=== PATIENT | female | born 1935 ===

== ENCOUNTER 2017-01-22 11:13 | Inpatient (IN) | payer MEDICARE ==
[2017-01-22 11:14] VITALS: BMI 22.4
[2017-01-22] MEDS ORDERED: Sodium Chloride 0.9% 500 ML IV ONE ×2 (11:45→11:58)
[2017-01-22] MEDS ORDERED: Sodium Chloride 0.9% 1,000 ML IV ONE (11:45)
--- NOTE | 2017-01-22 11:45 | C.PDOC ---
History Of Present Illness 81-year-old female, PMHx includes, presents to the emergency department with complaints of worsening non-bloody diarrhea x1 month, anywhere from 3-6 times a day, that are sometimes loose or watery. Patient denies sick contacts or recent travel. States she saw PMD on 01/20, who advised patient on low Potassium and diet for treatment. Patient notes increased weakness and 10lb weight loss. Denies pain, vomiting, bloating, or fever. Patient states stool is sometimes black, but she takes Pepto as needed. PMD Juanjo Serna MD. Time Seen by Provider: 01/22/17 11:29 Chief Complaint (Nursing): GI Problem History Per: Patient History/Exam Limitations: no limitations Onset/Duration Of Symptoms: Days Current Symptoms Are (Timing): Still Present Severity: Moderate Past Medical History Reviewed: Historical Data, Nursing Documentation, Vital Signs Vital Signs: Last Vital Signs Temp 98.1 F 01/22/17 11:23 Pulse 69 01/22/17 11:23 Resp 16 01/22/17 11:23 BP 102/73 01/22/17 11:23 Pulse Ox 95 01/22/17 12:48 - Medical History PMH: Anxiety, Arthritis (HIP ), Cardia Arrhythmia, HTN Surgical History: Endoscopy, Pacemaker - [facility] Procedures CORONAR ARTERIOGR-2 CATH (03/12/13) LEFT HEART CARDIAC CATH (03/12/13) LT HEART ANGIOCARDIOGRAM (03/12/13) Family History: States: No Known Family Hx - Social History Hx Tobacco Use: No Hx Alcohol Use: No Hx Substance Use: No - Immunization History Hx Tetanus Toxoid Vaccination: Yes Hx Influenza Vaccination: Yes Hx Pneumococcal Vaccination: Yes Review Of Systems Except As Marked, All Systems Reviewed And Found Negative. Constitutional: Negative for: Fever, Chills Gastrointestinal: Positive for: Diarrhea. Negative for: Nausea, Vomiting, Abdominal Pain Musculoskeletal: Negative for: Back Pain Skin: Negative for: Rash Neurological: Negative for: Weakness, Numbness Physical Exam - Physical Exam Appears: Non-toxic, No Acute Distress Skin: Warm, Dry, No Rash Head: Atraumatic, Normacephalic Eye(s): bilateral: Normal Inspection, PERRL Nose: Normal Oral Mucosa: Moist Lips: Normal Appearing Neck: Normal ROM Cardiovascular: Rhythm Regular, No Murmur Respiratory: Normal Breath Sounds, No Accessory Muscle Use Gastrointestinal/Abdominal: Soft, No Tenderness Extremity: Normal ROM Neurological/Psych: Oriented x3, Normal Speech ED Course And Treatment - Laboratory Results Result Diagrams: 01/22/17 11:57 01/22/17 11:57 ECG: Interpreted By Me ECG Rhythm: AV Paced ECG Interpretation: Normal Rate From EC O2 Sat by Pulse Oximetry: 95 Pulse Ox Interpretation: Normal Progress - Re-Evaluation Re-evaluation Note: 01/22/17 12:47 D/W DR Rebecca LIM C/F PMD. WILL ADMIT 01/22/17 12:49 CT PENDING, RESULTS TO BE FU BY ADMITTING MD - Data Reviewed Data Reviewed: Lab, Diagnostic imaging, EKG, Old records Disposition Counseled Patient/Family Regarding: Studies Performed, Diagnosis, Need For Followup - Disposition Disposition: HOSPITALIZED Disposition Time: 12:48 Condition: STABLE Instructions: Weakness (ED) - POA Present On Arrival: None - Clinical Impression Clinical Impression: Diarrhea, Dehydration, Weakness - Scribe Statement The provider has reviewed the documentation as recorded by the Scribe (Rupa Coles) All medical record entries made by the Scribe were at my direction and personally dictated by me. I have reviewed the chart and agree that the record accurately reflects my personal performance of the history, physical exam, medical decision making, and the department course for this patient. I have also personally directed, reviewed, and agree with the discharge instructions and disposition. Decision To Admit - Pt Status Changed To: Hospital Disposition Of: Observation - . Bed Request Type: Regular Admitting Physician: Jack Lim Patient Diagnosis: Diarrhea, Dehydration, Weakness
[2017-01-22] MEDS ORDERED: Sodium Chloride 0.9% 1,000 ML ONE (11:58)
[2017-01-22 12:03] LABS: BASO % 0.9 % (0.0-2.0); EOS # 0.1 K/uL (0.0-0.7); EOS % 2.5 % (0.0-4.0); HEMATOCRIT 41.4 % (34.0-47.0); LYMPH # 1.3 K/uL (1.0-4.3); LYMPH % 25.7 % (20.0-40.0); MEAN CELL VOLUME 89.1 fL (81.0-99.0); MEAN CORPUSCULAR HEMOGLOBIN 29.3 pg (27.0-31.0); MEAN CORPUSCULAR HGB CONC 32.9 g/dL (33.0-37.0); MEAN PLATELET VOLUME 8.6 fL (7.2-11.7); MONO # 0.5 K/uL (0.0-0.8); MONO % 10.4 % (0.0-10.0); NRBC % 0.1 % (0.0-2.0); WHITE BLOOD COUNT 4.9 K/uL (4.8-10.8)
[2017-01-22 12:10] LABS: CHLORIDE 97 mmol/L (98-107); POTASSIUM 3.9 mmol/L (3.6-5.2); SODIUM 139 mmol/L (132-148)
[2017-01-22 12:13] LABS: BLOOD UREA NITROGEN 18 mg/dL (7-17); CARBON DIOXIDE 31 mmol/L (22-30); GFR AFRICAN-AMERICAN > 60
[2017-01-22 12:14] LABS: CALCIUM 9.1 mg/dl (8.6-10.4); GLUCOSE,RANDOM 102 mg/dL (65-105)
[2017-01-22] MEDS ORDERED: Iohexol 350mg/ml 100 ML ONE (12:32)
--- NOTE | 2017-01-22 14:41 | CP.PCM.HP ---
History of Present Illness - History of Present Illness History of Present Illness: 81 years old female patient with past medical history of hip joint arthritis, hypertension, cardiac arrhythmia presented to the ER with complaint of nonbloody diarrhea 3-5 times a day since one month that worsened recently. Recent history of 10 LB weight loss, increased weakness. Denies recent travel history, denies any sick contacts No fever nausea vomiting No abdominal pain, back pain, chest pain Present on Admission - Present on Admission Any Indicators Present on Admission: No Past Patient History - Past Medical History & Family History Past Medical History?: Yes - Past Social History Smoking Status: Never Smoked - CARDIAC Hx Cardia Arrhythmia: Yes Hx Hypertension: Yes Hx Pacemaker: Yes - PULMONARY Hx Respiratory Disorders: No - NEUROLOGICAL Hx Neurological Disorder: No - HEENT Hx HEENT Problems: No - RENAL Hx Chronic Kidney Disease: No - ENDOCRINE/METABOLIC Hx Endocrine Disorders: Yes Hx Diabetes Mellitus Type 2: Yes - HEMATOLOGICAL/ONCOLOGICAL Hx Blood Disorders: Yes Hx Cancer: Yes (LT BREAST CANCER) - INTEGUMENTARY Hx Dermatological Problems: No - MUSCULOSKELETAL/RHEUMATOLOGICAL Hx Arthritis: Yes (HIP ) - GASTROINTESTINAL Hx Gastrointestinal Disorders: Yes Hx Hemorrhoids: Yes - GENITOURINARY/GYNECOLOGICAL Hx Genitourinary Disorders: No - PSYCHIATRIC Hx Anxiety: Yes Hx Substance Use: No - SURGICAL HISTORY Hx Surgeries: Yes Hx Mastectomy: Yes (LT BREAST) - ANESTHESIA Hx Anesthesia: Yes Hx Anesthesia Reactions: No Hx Malignant Hyperthermia: No Meds Home Medications: Home Medication List Medication Instructions Recorded Confirmed Type Donepezil [Aricept] 10 mg PO DAILY #01/25/17 Rx Gabapentin [Neurontin] 100 mg PO HS #01/25/17 Rx Glimepiride [Amaryl] 1 mg PO DAILY #01/25/17 Rx Hydrochlorothiazide [Microzide] 12.5 mg PO DAILY #01/25/17 Rx Losartan Potassium 100 mg PO DAILY #01/25/17 Rx Allergies/Adverse Reactions: Allergies Allergy/AdvReac Type Severity Reaction Status Date / Time aspirin Allergy RASH Verified 01/22/17 11:18 Results - Vital Signs Recent Vital Signs: Last Vital Signs Temp 97.2 F L 01/22/17 13:51 Pulse 66 01/22/17 13:51 Resp 20 01/22/17 13:51 BP 151/79 H 01/22/17 13:51 Pulse Ox 95 01/22/17 13:51 - Labs Result Diagrams: 01/25/17 06:44 01/25/17 06:44 Assessment & Plan (1) Abdominal pain Status: Acute (2) Constipation Status: Acute (3) Dehydration Status: Acute (4) Dehydration Status: Acute (5) Diarrhea Status: Acute (6) HTN (hypertension) Status: Acute (7) Pacemaker Status: Acute (8) Paresthesia Status: Acute (9) Prophylactic measure Status: Acute (10) Sacroiliac joint pain Status: Acute (11) Weakness Status: Acute (12) Diabetes Status: Chronic - Assessment and Plan (Free Text) Plan: Labs and meds reviewed Stool studies noted Cardio consult Heart healthy diet Avelox Neurontin Hydration DVT prophylaxis Physical therapy screening Occupational Therapy screening
--- NOTE | 2017-01-22 15:56 | RAD ---
PROCEDURE: CHEST RADIOGRAPH, 1 VIEW HISTORY: abd pain COMPARISON: Comparison chest 01/17/2014 FINDINGS: LUNGS: There may be some minimal left basilar atelectasis or scarring PLEURA: No pneumothorax or pleural fluid seen. CARDIOVASCULAR: No change bipolar pacemaker or right-sided battery pack OSSEOUS STRUCTURES: Minor degenerative changes left shoulder girdle. Minor multilevel degenerative spondylosis of the thoracic spine. VISUALIZED UPPER ABDOMEN: Normal. OTHER FINDINGS: None. IMPRESSION: Suspect minimal left basilar atelectasis or scarring
--- NOTE | 2017-01-22 16:32 | CT ---
PROCEDURE: CT abdomen and pelvis dated 01/22/2017. HISTORY: Diarrhea and weight loss. Technologist notation also indicates history of breast cancer. COMPARISON: Comparison made with CT scan abdomen pelvis 12/15/2016 TECHNIQUE: Contiguous axial images of the abdomen and pelvis performed of following intravenous injection of approximately 100 cc of Omnipaque 350 contrast material. Radiation dose: Total exam DLP = 300.42 mGy-cm. This CT exam was performed using one or more of the following dose reduction techniques: Automated exposure control, adjustment of the mA and/or kV according to patient size, and/or use of iterative reconstruction technique. FINDINGS: LOWER THORAX: Mild atelectasis - hypoventilatory changes both lung bases. Mild scarring changes in the left lung base as well as lingular and middle lobe regions. . There is a small hiatal hernia with slight wall thickening of the distal esophagus that could be due to protrusion gastric mucosa. Esophagitis not excluded. Heart size within range of normal. No significant pericardial effusion. LIVER: The liver exhibits normal size measuring approximately 16.3 cm in CC dimension. Mild fatty hepatic infiltration. No obvious hepatic mass collection or calcification. Portal and splenic veins are opacified. GALLBLADDER AND BILE DUCTS: The gallbladder appears incompletely distended which may in part account for thick-walled appearance. Possibility of chronic inflammation not excluded. Clinical correlation recommended. PANCREAS: The pancreas appears slightly atrophic and fatty replaced. No obvious pancreatic mass collection or calcification. No significant pancreatic ductal dilatation. SPLEEN: Spleen exhibits normal size and attenuation pattern without mass collection or calcification. ADRENALS: There are no adrenal lesions. KIDNEYS AND URETERS: Kidneys demonstrate symmetric nephrograms. No evidence of nephrolithiasis or hydronephrosis. BLADDER: The urinary bladder is incompletely distended which may account for slight thick-walled appearance. Possibility of a cystitis not excluded. Clinical correlation with urinalysis recommended. REPRODUCTIVE: Status post hysterectomy. APPENDIX: Normal-appearing on short appendix of best seen on axial image number [id number]. BOWEL: Evaluation of the bowel is limited due to the lack of oral contrast material. Stomach is incompletely distended which may account for slight thick-walled appearance. Gastritis or other intrinsic/invasive wall lesion not excluded. Visualized loops of small bowel exhibit normal contour and caliber. No evidence acute mechanical small bowel obstruction. Stool and air seen throughout the colon. Scattered colonic diverticula noted along the sigmoid and descending colon. . Some minimal discontinuous/irregular wall thickening of short segment distal descending colon could be due to incomplete distention and peristalsis. The possibility of a mild localized inflammatory process -localized diverticulitis cannot be completely excluded. Clinical correlation recommended. PERITONEUM: Unremarkable. No fluid collection. No free air. Small fat containing umbilical hernia. LYMPH NODES: Unremarkable. No enlarged lymph nodes. VASCULATURE: Unremarkable. No aortic or iliac artery aneurysms. BONES: Minor multilevel degenerative spondylosis of the lower thoracic and lumbar spine. There is mild dextroscoliosis centered at the L2-L3 level. OTHER FINDINGS: None. IMPRESSION: Mild fatty hepatic infiltration. Gallbladder is incompletely distended which may also presumably accounts for slight thick-walled appearance. Clinical correlation recommended to exclude chronic inflammatory process Wall thickening of the stomach likely in part due to incomplete distention. Possible gastritis or other intrinsic/invasive wall lesion not excluded. Diverticulosis. Note made of some minimal discontinuous wall thickening short-segment of the sigmoid colon which may in part be due to underdistention and peristalsis however the possibility of a localized inflammatory process such is not the diverticulitis cannot be excluded. Clinical correlation recommended. . Mild wall thickening of the urinary bladder in part due to incomplete distention or cystitis should be excluded. See above discussion for additional details and findings. Findings discussed with Dr. ayoub at approximately 4:15 p.m. with written down and read back verification.
[2017-01-22] MEDS ORDERED: Moxifloxacin IV 400mg/250ml NS 400 MG/250 ML BAG IVPB SCH (18:00)
[2017-01-23] MEDS: Pantoprazole 40 mg EC Tab PO SCH (10:49)
[2017-01-23] MEDS: Enoxaparin 40 mg Syringe SC SCH (10:51)
[2017-01-23] MEDS ORDERED: Dextrose 50% SYRINGE Inj (50 ml) ONE (11:41)
[2017-01-23] MEDS ORDERED: Dextrose 50% SYRINGE Inj (50 ml) IV ONE (11:45)
--- NOTE | 2017-01-23 17:00 | CP.PCM.CON ---
History of Present Illness - History of Present Illness History of Present Illness: 81 F with hx of Pacemekar placement, HTN admitted for diarrhea Denies chest pain and dyspnea Review of Systems - Constitutional Constitutional: Fatigue - EENT Eyes: absent: Blurred Vision Ears: absent: Ear Discharge - Cardiovascular Cardiovascular: absent: Chest Pain - Respiratory Respiratory: absent: Dyspnea - Gastrointestinal Gastrointestinal: Abdominal Pain, Diarrhea - Musculoskeletal Musculoskeletal: absent: Arthralgias - Neurological Neurological: absent: Confusion - Psychiatric Psychiatric: absent: Abnormal Sleep Pattern Past Patient History - Past Medical History & Family History Past Medical History?: Yes - Past Social History Smoking Status: Never Smoked - CARDIAC Hx Cardiac Disorders: Yes (r pacemaker) Hx Hypertension: Yes - PULMONARY Hx Respiratory Disorders: No - NEUROLOGICAL Hx Neurological Disorder: No - HEENT Hx HEENT Problems: No - RENAL Hx Chronic Kidney Disease: No - ENDOCRINE/METABOLIC Hx Diabetes Mellitus Type 2: Yes - HEMATOLOGICAL/ONCOLOGICAL Hx Blood Disorders: Yes Hx Cancer: Yes (LT BREAST CANCER) - INTEGUMENTARY Hx Dermatological Problems: No - MUSCULOSKELETAL/RHEUMATOLOGICAL Hx Arthritis: Yes (HIP ; back) - GASTROINTESTINAL Hx Gastrointestinal Disorders: Yes Hx Hemorrhoids: Yes - GENITOURINARY/GYNECOLOGICAL Hx Genitourinary Disorders: No - PSYCHIATRIC Hx Anxiety: Yes Hx Substance Use: No - SURGICAL HISTORY Hx Surgeries: Yes Hx Mastectomy: Yes (LT BREAST) - ANESTHESIA Hx Anesthesia: Yes Hx Anesthesia Reactions: No Hx Malignant Hyperthermia: No Meds Allergies/Adverse Reactions: Allergies Allergy/AdvReac Type Severity Reaction Status Date / Time aspirin Allergy RASH Verified 01/22/17 11:18 - Medications Medications: Current Medications Alprazolam (Xanax) 1 mg PO BID [facility] Last Admin: 01/23/17 10:50 Dose: Not Given Donepezil HCl (Aricept) 10 mg PO DAILY [facility] Last Admin: 01/23/17 10:48 Dose: Not Given Enoxaparin Sodium (Lovenox) 40 mg SC DAILY [facility] Last Admin: 01/23/17 10:51 Dose: 40 mg Gabapentin (Neurontin) 100 mg PO HS [facility] Last Admin: 01/22/17 21:43 Dose: Not Given Glimepiride (Amaryl) 1 mg PO DAILY [facility] Last Admin: 01/23/17 10:48 Dose: Not Given Hydrochlorothiazide (Microzide) 12.5 mg PO DAILY [facility] Last Admin: 01/23/17 10:49 Dose: Not Given Losartan Potassium (Cozaar) 100 mg PO DAILY [facility] Last Admin: 01/23/17 10:49 Dose: Not Given Pantoprazole Sodium (Protonix Ec Tab) 40 mg PO DAILY [facility] Last Admin: 01/23/17 10:49 Dose: Not Given Physical Exam - Constitutional Appears: Non-toxic - Head Exam Head Exam: ATRAUMATIC - Eye Exam Eye Exam: EOMI, Normal appearance, PERRL - ENT Exam ENT Exam: Mucous Membranes Moist - Neck Exam Neck exam: Positive for: Normal Inspection - Respiratory Exam Respiratory Exam: NORMAL BREATHING PATTERN - Cardiovascular Exam Cardiovascular Exam: +S1, +S2. absent: Systolic Murmur - GI/Abdominal Exam GI & Abdominal Exam: Normal Bowel Sounds, Soft - Neurological Exam Neurological exam: Alert, CN II-XII Intact - Psychiatric Exam Psychiatric exam: Normal Mood Results - Vital Signs Recent Vital Signs: Last Vital Signs Temp 97.7 F 01/23/17 15:00 Pulse 75 01/23/17 15:00 Resp 20 01/23/17 15:00 BP 146/72 01/23/17 15:00 Pulse Ox 96 01/23/17 15:00 - Labs Result Diagrams: 01/22/17 11:57 01/22/17 11:57 Labs: Laboratory Results - last 24 hr 01/23/17 16:34 POC Glucose (mg/dL) 98 Assessment & Plan - Assessment and Plan (Free Text) Assessment: 1. HTN controlled 2. Hx of PPM: No pacemaker issues 3. Diarrhea Medical management
--- NOTE | 2017-01-23 17:30 | CP.PCM.PN ---
Subjective - Date & Time of Evaluation Date of Evaluation: 01/23/17 Time of Evaluation: 10:20 - Subjective Subjective: clinically same Objective - Vital Signs/Intake and Output Vital Signs (last 24 hours): Temp Pulse Resp BP Pulse Ox 97.7 F 75 20 146/72 96 01/23/17 15:00 01/23/17 15:00 01/23/17 15:00 01/23/17 15:00 01/23/17 15:00 - Medications Medications: Current Medications Alprazolam (Xanax) 1 mg PO BID [facility] Last Admin: 01/23/17 10:50 Dose: Not Given Donepezil HCl (Aricept) 10 mg PO DAILY [facility] Last Admin: 01/23/17 10:48 Dose: Not Given Enoxaparin Sodium (Lovenox) 40 mg SC DAILY [facility] Last Admin: 01/23/17 10:51 Dose: 40 mg Gabapentin (Neurontin) 100 mg PO HS [facility] Last Admin: 01/22/17 21:43 Dose: Not Given Glimepiride (Amaryl) 1 mg PO DAILY [facility] Last Admin: 01/23/17 10:48 Dose: Not Given Hydrochlorothiazide (Microzide) 12.5 mg PO DAILY [facility] Last Admin: 01/23/17 10:49 Dose: Not Given Losartan Potassium (Cozaar) 100 mg PO DAILY [facility] Last Admin: 01/23/17 10:49 Dose: Not Given Pantoprazole Sodium (Protonix Ec Tab) 40 mg PO DAILY [facility] Last Admin: 01/23/17 10:49 Dose: Not Given - Constitutional Appears: Well - Head Exam Head Exam: ATRAUMATIC, NORMAL INSPECTION, NORMOCEPHALIC - Eye Exam Eye Exam: EOMI, Normal appearance, PERRL - ENT Exam ENT Exam: Mucous Membranes Moist, Normal Exam - Neck Exam Neck Exam: Full ROM, Normal Inspection. absent: Lymphadenopathy - Respiratory Exam Respiratory Exam: Decreased Breath Sounds - Cardiovascular Exam Cardiovascular Exam: REGULAR RHYTHM, +S1, +S2. absent: Murmur - GI/Abdominal Exam GI & Abdominal Exam: Diminished Bowel Sounds - Rectal Exam Rectal Exam: Deferred Assessment and Plan (1) Abdominal pain Status: Acute (2) Constipation Status: Acute (3) Dehydration Status: Acute (4) Dehydration Status: Acute (5) Diarrhea Status: Acute (6) HTN (hypertension) Status: Acute (7) Pacemaker Status: Acute (8) Paresthesia Status: Acute (9) Prophylactic measure Status: Acute (10) Sacroiliac joint pain Status: Acute (11) Weakness Status: Acute (12) Diabetes Status: Chronic - Assessment and Plan (Free Text) Plan: C. difficile negative Afebrile Labs noted Continue same Lovenox Cozaar Protonix Blood pressure monitoring Dr. Sanford PT/OT
--- NOTE | 2017-01-23 21:00 | CP.PCM.PN ---
Subjective - Date & Time of Evaluation Date of Evaluation: 01/23/17 Time of Evaluation: 20:58 - Subjective Subjective: ASked to see pt today for diarrhea. Sees Dr Ramos in office. Reports 1 month of diarrhea. Watery stools - 4 times per day. Occ black stool after pepto bismol. Reports colonsocopy 08/19 which showed an infection that she was treated for. \ Reports 10 lb wt loss x 2 months. Also reports had EGD. Objective - Vital Signs/Intake and Output Vital Signs (last 24 hours): Temp Pulse Resp BP Pulse Ox 97.7 F 75 20 146/72 96 01/23/17 15:00 01/23/17 15:00 01/23/17 15:00 01/23/17 15:00 01/23/17 15:00 - Medications Medications: Current Medications Alprazolam (Xanax) 1 mg PO BID [facility] Last Admin: 01/23/17 18:37 Dose: 1 mg Donepezil HCl (Aricept) 10 mg PO DAILY [facility] Last Admin: 01/23/17 10:48 Dose: Not Given Enoxaparin Sodium (Lovenox) 40 mg SC DAILY [facility] Last Admin: 01/23/17 10:51 Dose: 40 mg Gabapentin (Neurontin) 100 mg PO HS [facility] Last Admin: 01/22/17 21:43 Dose: Not Given Glimepiride (Amaryl) 1 mg PO DAILY [facility] Last Admin: 01/23/17 10:48 Dose: Not Given Hydrochlorothiazide (Microzide) 12.5 mg PO DAILY [facility] Last Admin: 01/23/17 10:49 Dose: Not Given Losartan Potassium (Cozaar) 100 mg PO DAILY [facility] Last Admin: 01/23/17 10:49 Dose: Not Given Pantoprazole Sodium (Protonix Ec Tab) 40 mg PO DAILY [facility] Last Admin: 01/23/17 10:49 Dose: Not Given - Constitutional Appears: Well - Respiratory Exam Respiratory Exam: Clear to Ausculation Bilateral - Cardiovascular Exam Cardiovascular Exam: RRR - GI/Abdominal Exam GI & Abdominal Exam: Soft, Normal Bowel Sounds. absent: Guarding, Tenderness, Mass - Extremities Exam Extremities Exam: absent: Pedal Edema - Neurological Exam Neurological Exam: Alert, Oriented x3 - Psychiatric Exam Psychiatric exam: Normal Mood Assessment and Plan (1) HTN (hypertension) Status: Acute (2) Pacemaker Status: Acute (3) Dehydration Status: Acute (4) Diarrhea Assessment & Plan: c difficile is negative. Consider bacterial or parasites. Check stool tests. Consider IBS. Consider flex sig. Status: Acute (5) Weakness Status: Acute
[2017-01-24 06:55] LABS: BASO % 0.7 % (0.0-2.0); EOS # 0.1 K/uL (0.0-0.7); EOS % 2.2 % (0.0-4.0); HEMATOCRIT 40.8 % (34.0-47.0); LYMPH # 1.7 K/uL (1.0-4.3); LYMPH % 27.4 % (20.0-40.0); MEAN CELL VOLUME 89.7 fL (81.0-99.0); MEAN CORPUSCULAR HEMOGLOBIN 30.3 pg (27.0-31.0); MEAN CORPUSCULAR HGB CONC 33.8 g/dL (33.0-37.0); MEAN PLATELET VOLUME 8.7 fL (7.2-11.7); MONO # 0.6 K/uL (0.0-0.8); MONO % 10.3 % (0.0-10.0); NRBC % 0.1 % (0.0-2.0); RED CELL DISTRIBUTION WIDTH 14.1 % (11.5-14.5); WHITE BLOOD COUNT 6.2 K/uL (4.8-10.8)
[2017-01-24 07:06] LABS: ALB/GLOB RATIO 0.9 (1.0-2.1); ALKALINE PHOSPHATASE 85 U/L (38-126); ALT/SGPT 33 U/L (9-52); AST/SGOT 31 U/L (14-36); BILIRUBIN,TOTAL 0.9 mg/dL (0.2-1.3); BLOOD UREA NITROGEN 24 mg/dL (7-17); CALCIUM 8.7 mg/dl (8.6-10.4); CARBON DIOXIDE 30 mmol/L (22-30); CHLORIDE 98 mmol/L (98-107); GFR AFRICAN-AMERICAN > 60; GLUCOSE,RANDOM 104 mg/dL (65-105); POTASSIUM 3.6 mmol/L (3.6-5.2); SODIUM 140 mmol/L (132-148); TOTAL PROTEIN 6.9 g/dL (6.3-8.3)
[2017-01-24 08:13] VITALS: RESP 20
[2017-01-24] MEDS: Pantoprazole 40 mg EC Tab PO SCH (10:12)
[2017-01-24] MEDS: Enoxaparin 40 mg Syringe SC SCH (10:13)
[2017-01-24] MEDS ORDERED: (Novolin R) Insulin Human Regular 100 units/ml vial SC SCH ×2 (11:30)
[2017-01-24] MEDS: (Novolin R) Insulin Human Regular 100 units/ml vial SC SCH ×3 (11:39→23:51)
--- NOTE | 2017-01-24 15:46 | CP.PCM.PN ---
Subjective - Date & Time of Evaluation Date of Evaluation: 01/24/17 Time of Evaluation: 09:00 - Subjective Subjective: Medicine Progress Note- Dr. Rebecca Gibbs's Service: Patient seen and examined at bedside this AM. Patient reports she is feeling well this AM. Patient had one normal BM this AM. She does not have abdominal pain, nausea, vomiting or pain. She reports ACCUCHECK this AM was over 500, and that she has never had sugars this high. No other issues today. She admits to colonoscopy 4 months ago which showed "infection in her stool. Objective - Vital Signs/Intake and Output Vital Signs (last 24 hours): Temp Pulse Resp BP Pulse Ox 97.8 F 68 20 147/76 95 01/24/17 08:12 01/24/17 08:12 01/24/17 08:12 01/24/17 08:12 01/24/17 08:12 Intake and Output: 01/24/17 01/24/17 06:59 18:59 Intake Total 450 Output Total 3 Balance 447 - Medications Medications: Current Medications Alprazolam (Xanax) 1 mg PO BID [facility] Last Admin: 01/24/17 10:09 Dose: 1 mg Donepezil HCl (Aricept) 10 mg PO DAILY [facility] Last Admin: 01/24/17 10:12 Dose: 10 mg Enoxaparin Sodium (Lovenox) 40 mg SC DAILY [facility] Last Admin: 01/24/17 10:13 Dose: 40 mg Gabapentin (Neurontin) 100 mg PO HS [facility] Last Admin: 01/23/17 21:15 Dose: Not Given Glimepiride (Amaryl) 1 mg PO DAILY [facility] Last Admin: 01/24/17 10:09 Dose: 1 mg Hydrochlorothiazide (Microzide) 12.5 mg PO DAILY [facility] Last Admin: 01/24/17 10:12 Dose: 12.5 mg Insulin Human Regular (Novolin R) 0 unit SC [facility] PRN Reason: Protocol Last Admin: 01/24/17 11:39 Dose: Not Given Losartan Potassium (Cozaar) 100 mg PO DAILY [facility] Last Admin: 01/24/17 10:12 Dose: 100 mg Pantoprazole Sodium (Protonix Ec Tab) 40 mg PO DAILY [facility] Last Admin: 01/24/17 10:12 Dose: 40 mg - Labs Labs: 01/24/17 06:32 01/24/17 06:32 - Constitutional Appears: No Acute Distress - Head Exam Head Exam: NORMAL INSPECTION, NORMOCEPHALIC - Eye Exam Eye Exam: EOMI, Normal appearance - ENT Exam ENT Exam: Mucous Membranes Moist - Respiratory Exam Respiratory Exam: Clear to Ausculation Bilateral. absent: Rales, Rhonchi - Cardiovascular Exam Cardiovascular Exam: REGULAR RHYTHM, +S1, +S2 - GI/Abdominal Exam GI & Abdominal Exam: Soft. absent: Distended, Tenderness - Extremities Exam Extremities Exam: Full ROM, Normal Inspection - Back Exam Back Exam: NORMAL INSPECTION - Neurological Exam Neurological Exam: Alert, Oriented x3 - Psychiatric Exam Psychiatric exam: Normal Affect, Normal Mood - Skin Skin Exam: Dry, Normal Color Assessment and Plan (1) Diarrhea Assessment & Plan: GI consult placed- Dr. Dobbs- shanta appreciated C. difficile is negative. Stool leukocytes negative. Follow up OVA and parasite in stool. As per GI, consider IBS and flex sigmoidoscopy. f/u GI recommendations Abd CT 01/22/17 showed: * Mild fatty hepatic infiltration. * Gallbladder is incompletely distended which may also presumably accounts for slight thick-walled appearance. Clinical correlation recommended to exclude chronic inflammatory process. * Wall thickening of the stomach likely in part due to incomplete distention. Possible gastritis or other intrinsic/invasive wall lesion not excluded. * Diverticulosis. Note made of some minimal discontinuous wall thickening short- segment of the sigmoid colon which may in part be due to underdistention and peristalsis however the possibility of a localized inflammatory process such is not the diverticulitis cannot be excluded. Clinical correlation recommended. * Mild wall thickening of the urinary bladder in part due to incomplete distention or cystitis should be excluded. Status: Acute (2) Dehydration Assessment & Plan: Electrolytes WNL as per CMP this AM Status: Acute (3) HTN (hypertension) Assessment & Plan: BP stable on current treatment: HCTZ 12.5 mg PO daily Losartan 100 mg PO daily Status: Acute (4) Pacemaker Assessment & Plan: Cardio consult placed- Dr. Sanford- help appreciated As per Dr. Sanford, No pacemaker issues. Continue current management. Status: Acute (5) Diabetes Assessment & Plan: Patient on Amaryl 1 mg PO daily Patient with BS >500. Will add ISS while in hospital. Hgb A1C 6.2 on 05/13/16 f/u repeat Hgb A1C Status: Acute (6) Prophylactic measure Assessment & Plan: Lovenox 40 mg SC daily Protonix 40 mg PO daily All management as per Dr. Gibbs. Status: Acute
--- NOTE | 2017-01-24 17:12 | CP.PCM.PN ---
Subjective - Date & Time of Evaluation Date of Evaluation: 01/24/17 Time of Evaluation: 09:20 - Subjective Subjective: clinically same Objective - Vital Signs/Intake and Output Vital Signs (last 24 hours): Temp Pulse Resp BP Pulse Ox 97.8 F 68 20 147/76 95 01/24/17 08:12 01/24/17 08:12 01/24/17 08:12 01/24/17 08:12 01/24/17 08:12 Intake and Output: 01/24/17 01/24/17 06:59 18:59 Intake Total 450 Output Total 3 Balance 447 - Medications Medications: Current Medications Alprazolam (Xanax) 1 mg PO BID [facility] Last Admin: 01/24/17 10:09 Dose: 1 mg Donepezil HCl (Aricept) 10 mg PO DAILY [facility] Last Admin: 01/24/17 10:12 Dose: 10 mg Enoxaparin Sodium (Lovenox) 40 mg SC DAILY [facility] Last Admin: 01/24/17 10:13 Dose: 40 mg Gabapentin (Neurontin) 100 mg PO [facility] Last Admin: 01/23/17 21:15 Dose: Not Given Glimepiride (Amaryl) 1 mg PO DAILY [facility] Last Admin: 01/24/17 10:09 Dose: 1 mg Hydrochlorothiazide (Microzide) 12.5 mg PO DAILY [facility] Last Admin: 01/24/17 10:12 Dose: 12.5 mg Insulin Human Regular (Novolin R) 0 unit SC [facility] PRN Reason: Protocol Last Admin: 01/24/17 11:39 Dose: Not Given Losartan Potassium (Cozaar) 100 mg PO DAILY [facility] Last Admin: 01/24/17 10:12 Dose: 100 mg Pantoprazole Sodium (Protonix Ec Tab) 40 mg PO DAILY [facility] Last Admin: 01/24/17 10:12 Dose: 40 mg - Labs Labs: 01/24/17 06:32 01/24/17 06:32 - Constitutional Appears: Well - Head Exam Head Exam: ATRAUMATIC, NORMAL INSPECTION, NORMOCEPHALIC - Eye Exam Eye Exam: EOMI, Normal appearance, PERRL Pupil Exam: NORMAL ACCOMODATION, PERRL - ENT Exam ENT Exam: Mucous Membranes Moist, Normal Exam - Neck Exam Neck Exam: Full ROM, Normal Inspection. absent: Lymphadenopathy - Respiratory Exam Respiratory Exam: Decreased Breath Sounds - Cardiovascular Exam Cardiovascular Exam: REGULAR RHYTHM, +S1, +S2 - GI/Abdominal Exam GI & Abdominal Exam: Soft, Diminished Bowel Sounds - Rectal Exam Rectal Exam: Deferred Assessment and Plan (1) Abdominal pain Status: Acute (2) Constipation Status: Acute (3) Dehydration Status: Acute (4) Dehydration Status: Acute (5) Diarrhea Status: Acute (6) HTN (hypertension) Status: Acute (7) Pacemaker Status: Acute (8) Paresthesia Status: Acute (9) Prophylactic measure Status: Acute (10) Sacroiliac joint pain Status: Acute (11) Weakness Status: Acute (12) Diabetes Status: Chronic - Assessment and Plan (Free Text) Plan: Febrile Looks comfortable Labs noted Continue same Lovenox Cozaar Protonix Blood pressure monitoring Dr. Sanford PT/OT
--- NOTE | 2017-01-24 20:13 | CP.PCM.PN ---
Subjective - Date & Time of Evaluation Date of Evaluation: 01/24/17 Time of Evaluation: 20:12 - Subjective Subjective: F/U diarrhea. Patient and Rn report less diarrhea and formed dtool today. Denies abd pain, RB, melena, fever, chills, Cp ,sob, [place], cough Objective - Vital Signs/Intake and Output Vital Signs (last 24 hours): Temp Pulse Resp BP Pulse Ox 97.5 F L 66 20 138/67 97 01/24/17 15:00 01/24/17 15:00 01/24/17 15:00 01/24/17 15:00 01/24/17 15:00 - Medications Medications: Current Medications Alprazolam (Xanax) 1 mg PO BID [facility] Last Admin: 01/24/17 18:20 Dose: 1 mg Donepezil HCl (Aricept) 10 mg PO DAILY [facility] Last Admin: 01/24/17 10:12 Dose: 10 mg Enoxaparin Sodium (Lovenox) 40 mg SC DAILY [facility] Last Admin: 01/24/17 10:13 Dose: 40 mg Gabapentin (Neurontin) 100 mg PO HS [facility] Last Admin: 01/23/17 21:15 Dose: Not Given Glimepiride (Amaryl) 1 mg PO DAILY [facility] Last Admin: 01/24/17 10:09 Dose: 1 mg Hydrochlorothiazide (Microzide) 12.5 mg PO DAILY [facility] Last Admin: 01/24/17 10:12 Dose: 12.5 mg Insulin Human Regular (Novolin R) 0 unit SC [facility] PRN Reason: Protocol Last Admin: 01/24/17 18:21 Dose: Not Given Losartan Potassium (Cozaar) 100 mg PO DAILY [facility] Last Admin: 01/24/17 10:12 Dose: 100 mg Pantoprazole Sodium (Protonix Ec Tab) 40 mg PO DAILY [facility] Last Admin: 01/24/17 10:12 Dose: 40 mg - Labs Labs: 01/24/17 06:32 01/24/17 06:32 - Constitutional Appears: Well - Neck Exam Neck Exam: absent: Tenderness - Respiratory Exam Respiratory Exam: Clear to Ausculation Bilateral - Cardiovascular Exam Cardiovascular Exam: RRR - GI/Abdominal Exam GI & Abdominal Exam: Soft, Normal Bowel Sounds. absent: Tenderness - Extremities Exam Extremities Exam: absent: Calf Tenderness - Neurological Exam Neurological Exam: Alert, Oriented x3 Assessment and Plan (1) HTN (hypertension) Status: Acute (2) Pacemaker Status: Acute (3) Dehydration Status: Acute (4) Diarrhea Assessment & Plan: Improving. C diff is neg. Status: Acute (5) Weakness Status: Acute
--- NOTE | 2017-01-25 00:27 | CP.PCM.PN ---
Subjective - Date & Time of Evaluation Date of Evaluation: 01/24/17 Time of Evaluation: 16:00 - Subjective Subjective: Patient denies chest pain and dyspnea Looks comfortable Objective - Vital Signs/Intake and Output Vital Signs (last 24 hours): Temp Pulse Resp BP Pulse Ox 98.3 F 78 20 135/66 95 01/25/17 00:00 01/25/17 00:00 01/25/17 00:00 01/25/17 00:00 01/25/17 00:00 - Medications Medications: Current Medications Alprazolam (Xanax) 1 mg PO BID [facility] Last Admin: 01/24/17 18:20 Dose: 1 mg Donepezil HCl (Aricept) 10 mg PO DAILY [facility] Last Admin: 01/24/17 10:12 Dose: 10 mg Enoxaparin Sodium (Lovenox) 40 mg SC DAILY [facility] Last Admin: 01/24/17 10:13 Dose: 40 mg Gabapentin (Neurontin) 100 mg PO HS [facility] Last Admin: 01/24/17 23:51 Dose: Not Given Glimepiride (Amaryl) 1 mg PO DAILY [facility] Last Admin: 01/24/17 10:09 Dose: 1 mg Hydrochlorothiazide (Microzide) 12.5 mg PO DAILY [facility] Last Admin: 01/24/17 10:12 Dose: 12.5 mg Insulin Human Regular (Novolin R) 0 unit SC [facility] PRN Reason: Protocol Last Admin: 01/24/17 23:51 Dose: Not Given Losartan Potassium (Cozaar) 100 mg PO DAILY [facility] Last Admin: 01/24/17 10:12 Dose: 100 mg Pantoprazole Sodium (Protonix Ec Tab) 40 mg PO DAILY [facility] Last Admin: 01/24/17 10:12 Dose: 40 mg - Labs Labs: 01/24/17 06:32 01/24/17 06:32
[2017-01-25 07:33] LABS: BASO % 0.7 % (0.0-2.0); EOS # 0.1 K/uL (0.0-0.7); EOS % 1.8 % (0.0-4.0); HEMATOCRIT 41.4 % (34.0-47.0); LYMPH # 1.2 K/uL (1.0-4.3); LYMPH % 20.3 % (20.0-40.0); MEAN CELL VOLUME 89.3 fL (81.0-99.0); MEAN CORPUSCULAR HEMOGLOBIN 29.9 pg (27.0-31.0); MEAN CORPUSCULAR HGB CONC 33.5 g/dL (33.0-37.0); MEAN PLATELET VOLUME 8.8 fL (7.2-11.7); MONO # 0.6 K/uL (0.0-0.8); MONO % 9.9 % (0.0-10.0); NRBC % 0.1 % (0.0-2.0); WHITE BLOOD COUNT 6.1 K/uL (4.8-10.8)
[2017-01-25 08:05] LABS: CHLORIDE 99 mmol/L (98-107)
[2017-01-25 08:06] LABS: POTASSIUM 3.5 mmol/L (3.6-5.2); SODIUM 139 mmol/L (132-148)
[2017-01-25 08:08] LABS: AST/SGOT 31 U/L (14-36); BILIRUBIN,TOTAL 0.9 mg/dL (0.2-1.3); CARBON DIOXIDE 29 mmol/L (22-30); GFR AFRICAN-AMERICAN > 60
[2017-01-25 08:09] LABS: ALKALINE PHOSPHATASE 90 U/L (38-126); ALT/SGPT 30 U/L (9-52); BLOOD UREA NITROGEN 22 mg/dL (7-17); CALCIUM 8.6 mg/dl (8.6-10.4); GLUCOSE,RANDOM 105 mg/dL (65-105)
[2017-01-25] MEDS: (Novolin R) Insulin Human Regular 100 units/ml vial SC SCH ×2 (08:24→12:33)
--- NOTE | 2017-01-25 10:07 | CP.PCM.PN ---
Subjective - Date & Time of Evaluation Date of Evaluation: 01/25/17 Time of Evaluation: 10:04 - Subjective Subjective: CC: follow up diarrhea No BMs yesterday. Was told at 3 AM today that she's getting colonoscopy (had been cancelled) and she got nervous then had 3 episodes of diarrhea. Stools have not been collected due to no BMs! Patient is cleared for discharge and was instructed to follow up in my office Objective - Vital Signs/Intake and Output Vital Signs (last 24 hours): Temp Pulse Resp BP Pulse Ox 97.9 F 70 20 132/70 96 01/25/17 07:16 01/25/17 07:16 01/25/17 07:16 01/25/17 07:16 01/25/17 07:16 - Medications Medications: Current Medications Alprazolam (Xanax) 1 mg PO BID [facility] Last Admin: 01/24/17 18:20 Dose: 1 mg Donepezil HCl (Aricept) 10 mg PO DAILY [facility] Last Admin: 01/24/17 10:12 Dose: 10 mg Enoxaparin Sodium (Lovenox) 40 mg SC DAILY [facility] Last Admin: 01/24/17 10:13 Dose: 40 mg Gabapentin (Neurontin) 100 mg PO HS [facility] Last Admin: 01/24/17 23:51 Dose: Not Given Glimepiride (Amaryl) 1 mg PO DAILY [facility] Last Admin: 01/24/17 10:09 Dose: 1 mg Hydrochlorothiazide (Microzide) 12.5 mg PO DAILY [facility] Last Admin: 01/24/17 10:12 Dose: 12.5 mg Insulin Human Regular (Novolin R) 0 unit SC [facility] PRN Reason: Protocol Last Admin: 01/25/17 08:24 Dose: Not Given Losartan Potassium (Cozaar) 100 mg PO DAILY [facility] Last Admin: 01/24/17 10:12 Dose: 100 mg Pantoprazole Sodium (Protonix Ec Tab) 40 mg PO DAILY [facility] Last Admin: 01/24/17 10:12 Dose: 40 mg - Labs Labs: 01/25/17 06:44 01/25/17 06:44 - Constitutional Appears: No Acute Distress - Head Exam Head Exam: NORMOCEPHALIC - Respiratory Exam Respiratory Exam: Clear to Ausculation Bilateral - Cardiovascular Exam Cardiovascular Exam: REGULAR RHYTHM - GI/Abdominal Exam GI & Abdominal Exam: Soft. absent: Tenderness Assessment and Plan (1) Diabetes Assessment & Plan: Management per primary medical team Status: Chronic (2) Diarrhea Assessment & Plan: Resolved. Likely functional. Had extensive workup this past year. If diarrhea recurs, stools should be sent to lab for the studies that have been ordered. May discharge. Follow up in office. Status: Acute
--- NOTE | 2017-01-25 10:21 | CP.PCM.PN ---
Subjective - Date & Time of Evaluation Date of Evaluation: 01/25/17 Time of Evaluation: 08:20 - Subjective Subjective: clinically same Objective - Vital Signs/Intake and Output Vital Signs (last 24 hours): Temp Pulse Resp BP Pulse Ox 97.9 F 70 20 132/70 96 01/25/17 07:16 01/25/17 07:16 01/25/17 07:16 01/25/17 07:16 01/25/17 07:16 - Medications Medications: Current Medications Alprazolam (Xanax) 1 mg PO BID [facility] Last Admin: 01/24/17 18:20 Dose: 1 mg Donepezil HCl (Aricept) 10 mg PO DAILY [facility] Last Admin: 01/24/17 10:12 Dose: 10 mg Enoxaparin Sodium (Lovenox) 40 mg SC DAILY [facility] Last Admin: 01/24/17 10:13 Dose: 40 mg Gabapentin (Neurontin) 100 mg PO HS [facility] Last Admin: 01/24/17 23:51 Dose: Not Given Glimepiride (Amaryl) 1 mg PO DAILY [facility] Last Admin: 01/24/17 10:09 Dose: 1 mg Hydrochlorothiazide (Microzide) 12.5 mg PO DAILY [facility] Last Admin: 01/24/17 10:12 Dose: 12.5 mg Insulin Human Regular (Novolin R) 0 unit SC [facility] PRN Reason: Protocol Last Admin: 01/25/17 08:24 Dose: Not Given Losartan Potassium (Cozaar) 100 mg PO DAILY [facility] Last Admin: 01/24/17 10:12 Dose: 100 mg Pantoprazole Sodium (Protonix Ec Tab) 40 mg PO DAILY [facility] Last Admin: 01/24/17 10:12 Dose: 40 mg - Labs Labs: 01/25/17 06:44 01/25/17 06:44 - Constitutional Appears: Well - Head Exam Head Exam: ATRAUMATIC, NORMAL INSPECTION, NORMOCEPHALIC - Eye Exam Eye Exam: EOMI, Normal appearance, PERRL Pupil Exam: NORMAL ACCOMODATION, PERRL - ENT Exam ENT Exam: Mucous Membranes Moist, Normal Exam - Neck Exam Neck Exam: Full ROM, Normal Inspection. absent: Lymphadenopathy - Respiratory Exam Respiratory Exam: Decreased Breath Sounds - Cardiovascular Exam Cardiovascular Exam: REGULAR RHYTHM, +S1, +S2 - GI/Abdominal Exam GI & Abdominal Exam: Soft, Diminished Bowel Sounds - Rectal Exam Rectal Exam: Deferred Assessment and Plan (1) Abdominal pain Status: Acute (2) Constipation Status: Acute (3) Dehydration Status: Acute (4) Dehydration Status: Acute (5) Diarrhea Status: Acute (6) HTN (hypertension) Status: Acute (7) Pacemaker Status: Acute (8) Paresthesia Status: Acute (9) Prophylactic measure Status: Acute (10) Sacroiliac joint pain Status: Acute (11) Weakness Status: Acute (12) Diabetes Status: Chronic - Assessment and Plan (Free Text) Plan: Patient clinically better Stable for discharge Follow-up on Monday in clinic Follow-up with byproducts maker Continue meds as advised Return to ED if symptom recurs
--- NOTE | 2017-01-25 10:47 | CP.PCM.PN ---
Subjective - Date & Time of Evaluation Date of Evaluation: 01/25/17 Time of Evaluation: 10:45 - Subjective Subjective: PGY2 progress note for Dr. Gibbs Pt is seen and examined at bedside. No acute events overnight. Patient is having well formed stools. Denies having any abd pain, N/V, Cp, SOB. Patient tolerating small amount of food. 12 point ROS are negative except for the above mentioned. Objective - Vital Signs/Intake and Output Vital Signs (last 24 hours): Temp Pulse Resp BP Pulse Ox 97.9 F 70 20 132/70 96 01/25/17 07:16 01/25/17 07:16 01/25/17 07:16 01/25/17 07:16 01/25/17 07:16 - Medications Medications: Current Medications Alprazolam (Xanax) 1 mg PO BID [facility] Last Admin: 01/24/17 18:20 Dose: 1 mg Donepezil HCl (Aricept) 10 mg PO DAILY [facility] Last Admin: 01/24/17 10:12 Dose: 10 mg Enoxaparin Sodium (Lovenox) 40 mg SC DAILY [facility] Last Admin: 01/24/17 10:13 Dose: 40 mg Gabapentin (Neurontin) 100 mg PO HS [facility] Last Admin: 01/24/17 23:51 Dose: Not Given Glimepiride (Amaryl) 1 mg PO DAILY [facility] Last Admin: 01/24/17 10:09 Dose: 1 mg Hydrochlorothiazide (Microzide) 12.5 mg PO DAILY [facility] Last Admin: 01/24/17 10:12 Dose: 12.5 mg Insulin Human Regular (Novolin R) 0 unit SC [facility] PRN Reason: Protocol Last Admin: 01/25/17 08:24 Dose: Not Given Losartan Potassium (Cozaar) 100 mg PO DAILY [facility] Last Admin: 01/24/17 10:12 Dose: 100 mg Pantoprazole Sodium (Protonix Ec Tab) 40 mg PO DAILY [facility] Last Admin: 01/24/17 10:12 Dose: 40 mg - Labs Labs: 01/25/17 06:44 01/25/17 06:44 - Constitutional Appears: Non-toxic, No Acute Distress - Head Exam Head Exam: ATRAUMATIC - ENT Exam ENT Exam: Mucous Membranes Moist - Respiratory Exam Respiratory Exam: Clear to Ausculation Bilateral. absent: Accessory Muscle Use , Rales, Rhonchi, Wheezes, Respiratory Distress - Cardiovascular Exam Cardiovascular Exam: REGULAR RHYTHM, +S1, +S2. absent: Gallop, Rubs, Murmur - GI/Abdominal Exam GI & Abdominal Exam: Soft, Normal Bowel Sounds. absent: Firm, Guarding, Rigid, Tenderness, Organomegaly - Extremities Exam Extremities Exam: absent: Pedal Edema, Tenderness - Neurological Exam Neurological Exam: Alert, Awake, Oriented x3 - Psychiatric Exam Psychiatric exam: Normal Affect, Normal Mood - Skin Skin Exam: Dry, Intact, Normal Color, Warm Assessment and Plan - Assessment and Plan (Free Text) Assessment: (1) Diarrhea GI consult placed- Dr. Dobbs- shanta appreciated C. difficile is negative. Stool leukocytes negative. Stool occult negative Ova& parasites, giardia, norovirus and crypto pending As per GI, cleared for discharge with follow up outpatient Abd CT 01/22/17 showed: * Mild fatty hepatic infiltration. * Gallbladder is incompletely distended which may also presumably accounts for slight thick-walled appearance. Clinical correlation recommended to exclude chronic inflammatory process. * Wall thickening of the stomach likely in part due to incomplete distention. Possible gastritis or other intrinsic/invasive wall lesion not excluded. * Diverticulosis. Note made of some minimal discontinuous wall thickening short- segment of the sigmoid colon which may in part be due to underdistention and peristalsis however the possibility of a localized inflammatory process such is not the diverticulitis cannot be excluded. Clinical correlation recommended. * Mild wall thickening of the urinary bladder in part due to incomplete distention or cystitis should be excluded. (2) Dehydration Electrolytes WNL as per CMP this AM (3) HTN (hypertension) BP stable on current treatment: HCTZ 12.5 mg PO daily Losartan 100 mg PO daily (4) Pacemaker Cardio consult placed- Dr. Sanford- help appreciated As per Dr. Sanford, No pacemaker issues. Continue current management. (5) Diabetes Patient on Amaryl 1 mg PO daily Patient with BS >500. Will add ISS while in hospital. Repeat Hgb is 6.2 (6) Prophylactic measure Lovenox 40 mg SC daily Protonix 40 mg PO daily All management and orders as per Dr. Gibbs. Patient is stable for discharge home per Dr. Gibbs Patient is to follow up with PMD, Dr. Gibbs upon discharge on Monday01/27/17 Patient is to follow up with wearing apparel presser, Dr. Ramos upon discharge. Patient will be given referral. Patient is given a script for the following medications: Losartan 100 mg PO QD, Microzide 12.5 mg po QD, Amaryl 1 mg po QD, Aricept 10 mg po QD, Neurontin 100 mg po HS. Please return to ED if symptoms worsen.
[2017-01-25] MEDS: Pantoprazole 40 mg EC Tab PO SCH (11:00)
[2017-01-25] MEDS: Enoxaparin 40 mg Syringe SC SCH (11:01)
[2017-01-25] MEDS ORDERED: Potassium Chloride 20 mEq ER Tab PO STA (11:34)
[2017-01-25] MEDS: Potassium Chloride 20 mEq ER Tab PO STA ×2 (12:26→12:27)
[2017-01-25 15:59] VITALS: BP 117/68; PULSE 75; TEMP 98.1; O2SAT 95
[2017-01-25] MEDS ORDERED: Dextrose 50% SYRINGE Inj (50 ml) IV STA (16:07)
--- NOTE | 2017-01-25 22:07 | CP.PCM.PN ---
Subjective - Date & Time of Evaluation Date of Evaluation: 01/25/17 Time of Evaluation: 07:30 - Subjective Subjective: Patient seen and evaluated Denies chest pain and dyspnea Objective - Vital Signs/Intake and Output Vital Signs (last 24 hours): Temp Pulse Resp BP Pulse Ox 98.1 F 75 20 117/68 95 01/25/17 15:00 01/25/17 15:00 01/25/17 15:00 01/25/17 15:00 01/25/17 15:00 Intake and Output: 01/25/17 01/26/17 18:59 06:59 Intake Total 500 Balance 500 - Labs Labs: 01/25/17 06:44 01/25/17 06:44
--- NOTE | 2017-01-27 10:14 | CARD ---
APPROVED REPORT EKG Measurement Heart [id number] <Conclusion> AV dual-paced rhythm Abnormal ECG
== END 2017-01-25 17:40 | disposition home or self-care (01) | DRG 641 ==
LOC: C.ER 11:13 → C.9E 12:49 → C.3T 13:37 → OBSVTOIN 01-23 15:12
PROVIDERS: ADMIT Internal Medicine Nephrology; ATTEND Internal Medicine Nephrology
DX: E86.0 Dehydration (principal); R19.7 Diarrhea, unspecified; E11.9 Type 2 diabetes mellitus without complications; I10 Essential (primary) hypertension; K57.90 Diverticulosis of intestine, part unspecified, without perforation or abscess without bleeding; M16.10 Unilateral primary osteoarthritis, unspecified hip; F41.9 Anxiety disorder, unspecified; Z95.0 Presence of cardiac pacemaker; Z85.3 Personal history of malignant neoplasm of breast; Z90.12 Acquired absence of left breast and nipple; Z79.84 Long term (current) use of oral hypoglycemic drugs; Z79.899 Other long term (current) drug therapy

== ENCOUNTER 2018-07-30 09:07 | Outpatient (CLI) | payer MEDICARE | END 2018-07-30 09:08 | disposition home or self-care (01) | LOC: C.MAMMO 09:07 | DX: Z12.31 Encounter for screening mammogram for malignant neoplasm of breast (principal) ==

== ENCOUNTER 2018-10-17 07:51 | Day surgery (SDC) | payer MEDICARE ==
[2018-10-17 08:35] VITALS: BMI 27.8
[2018-10-17] MEDS ORDERED: Propofol 10 mg/ml Inj (20 ML) ONE (09:48)
--- NOTE | 2018-10-17 09:51 | CP.SDSHP ---
Same Day Surgery H & P - History Proposed Procedure: EGD/Biopsy Pre-Op Diagnosis: Abdominal pain - Previous Medical/Surgical History Cardiac: Hypertension, Arrhythmia, Other (Pacemaker) Endocrine/Metabolic: Diabetes Previous Surgical History: left mastectomy. JOSE LUIS - Allergies Allergies: Allergies aspirin Allergy (Verified 10/17/18 08:35) RASH - Current Medications Current Medications: reviewed, per reconciliation - Physical Exam General Appearance: wdwn nad Vital Signs: Vital Signs 10/17/18 08:42 Temperature 97.5 F L Pulse Rate 72 Respiratory 18 Rate Blood Pressure 143/70 O2 Sat by Pulse 100 Oximetry Mental Status: Alert & Oriented x3 Heart: WNL Lungs: WNL GI: WNL - {Optional Preform as Required} Abdomen: WNL - Impression Impression: abdominal pain Pt. Evaluated Today:Candidate for Anesthesia & Procedure: Yes - Date & Time Date: 10/17/18 Time: 09:51 Short Stay Discharge - Short Stay Discharge Admitting Diagnosis/Reason for Visit: ABDOMINAL PAIN Disposition: HOME/ ROUTINE
[2018-10-17 10:20] VITALS: TEMP 98.2
[2018-10-17 10:50] VITALS: O2SAT 94
[2018-10-17 10:51] VITALS: BP 131/61; PULSE 68; RESP 14
== END 2018-10-17 11:20 | disposition home or self-care (01) ==
LOC: C.ENDO 07:51
PROVIDERS: ATTEND Internal Medicine Gastroenterology
DX: K29.70 Gastritis, unspecified, without bleeding (principal); D17.5 Benign lipomatous neoplasm of intra-abdominal organs
CPT/HCPCS: 43239; 82948; 88305; 88342; J2001; J2704